=== PATIENT | male | born 1930 | race African-American/Black ===

== ENCOUNTER 2018-08-07 16:38 | Emergency (ER) | payer SELFPAY ==
[~2018-08-07] VITALS: Ht 170.2 cm; Wt 60.0 kg
[2018-08-07] MEDS ORDERED: SODIUM CHLORIDE 0.9% 500 ML IV ONE (17:55)
[2018-08-07 19:15] LABS: BASOPHILS % 0.3 % (0.0-2.0); HEMATOCRIT. 40.3 % (42.0-52.0); HEMOGLOBIN. 13.3 g/dL (14.0-18.0); LYMPHOCYTES % 9.1 % (20.0-50.0); MEAN CORPUSCULAR HEMOGLOBIN 31.7 pg (28.0-32.0); MEAN CORPUSCULAR VOLUME 96.3 fL (80.0-94.0); MONOCYTES % 3.7 % (2.0-8.0); NEUTROPHILS % 86.9 % (40.0-76.0); PLATELET 205 x1000/uL (130-400); RED BLOOD CELL COUNT 4.19 mill/uL (4.7-6.1); RED CELL DISTRIBUTION WIDTH 16.2 % (11.6-14.6)
[2018-08-07 19:17] LABS: CHLORIDE 105 mEq/L (98-107)
[2018-08-07 19:19] LABS: INR 1.1; PARTIAL THROMBOPLASTIN TIME 25.7 sec (23.4-31.0); PROTHROMBIN TIME 10.6 sec (9.1-11.1)
[2018-08-07] MEDS ORDERED: FUROSEMIDE 20MG/2ML VIAL IVP ONE (20:00)
[2018-08-07 20:08] LABS: CLARITY URINE CLEAR (CLEAR); COLOR URINE YELLOW (YELLOW); KETONES URINE TRACE (NEGATIVE); LEUKOCYTE ESTERASE URINE NEGATIVE (NEGATIVE); NITRITE URINE NEGATIVE (NEGATIVE); OCCULT BLOOD URINE NEGATIVE (NEGATIVE); PROTEIN URINE 1+ (NEGATIVE); SPECIFIC GRAVITY URINE 1.024 (1.005-1.030)
[2018-08-07 22:27] VITALS: BP 156/88
== END 2018-08-07 22:32 | disposition short-term general hospital (02) ==
LOC: ER 16:38
DX: R55 Syncope and collapse (principal); F03.90 Unspecified dementia, unspecified severity, without behavioral disturbance, psychotic disturbance, mood disturbance, and anxiety; R73.9 Hyperglycemia, unspecified; E46 Unspecified protein-calorie malnutrition; I50.40 Unspecified combined systolic (congestive) and diastolic (congestive) heart failure; E78.00 Pure hypercholesterolemia, unspecified; I10 Essential (primary) hypertension
CPT/HCPCS: 36415; 70450; 71045; 80053; 81003; 83690; 83735; 83880; 84484; 85025; 85610; 85730; 87086; 93005; 96361; 96374; 99285; J1940; J7040

== ENCOUNTER 2019-04-01 20:42 | Emergency (ER) | payer OTHER ==
[~2019-04-01] VITALS: Ht 170.2 cm; Wt 82.0 kg
[2019-04-01] MEDS ORDERED: SODIUM CHLORIDE 0.9% 1000ML BAG (SEPSIS BOLUS) IV ONE (21:15)
[2019-04-01 21:42] LABS: BASOPHILS % 0.4 % (0.0-2.0); EOSINOPHILS % 0.5 % (0.0-5.0); HEMOGLOBIN. 11.5 g/dL (14.0-18.0); LYMPHOCYTES % 32.3 % (20.0-50.0); MEAN CORPUSCULAR HEMOGLOBIN 31.4 pg (28.0-32.0); MEAN CORPUSCULAR VOLUME 92.7 fL (80.0-94.0); MEAN PLATELET VOLUME 6.8 fl (7.4-10.4); MONOCYTES % 8.4 % (2.0-8.0); NEUTROPHILS % 58.4 % (40.0-76.0); PLATELET 214 x1000/uL (130-400); RED BLOOD CELL COUNT 3.67 mill/uL (4.7-6.1); RED CELL DISTRIBUTION WIDTH 14.5 % (11.6-14.6)
[2019-04-01 21:48] LABS: CHLORIDE 108 mEq/L (98-107)
[2019-04-01 21:50] LABS: INR 1.1; PROTHROMBIN TIME 11.6 sec (9.6-11.0)
[2019-04-01 22:44] LABS: CLARITY URINE CLOUDY (CLEAR); COLOR URINE YELLOW (YELLOW); KETONES URINE TRACE (NEGATIVE); LEUKOCYTE ESTERASE URINE 2+ (NEGATIVE); NITRITE URINE POSITIVE (NEGATIVE); OCCULT BLOOD URINE TRACE (NEGATIVE); PROTEIN URINE TRACE (NEGATIVE); SPECIFIC GRAVITY URINE 1.017 (1.005-1.030)
[2019-04-02] MEDS ORDERED: CEFTRIAXONE 1 G PREMIX 50 ML IV ONE (00:15)
[2019-04-02 04:06] VITALS: BP 152/74
== END 2019-04-02 04:06 | disposition short-term general hospital (02) ==
LOC: ER 20:42 → CANBEDREQ 04-02 05:36
DX: N39.0 Urinary tract infection, site not specified (principal); G93.49 Other encephalopathy
CPT/HCPCS: 36415; 71045; 80053; 81003; 83605; 84145; 84484; 85025; 85610; 87040; 87077; 87086; 87186; 93005; 96361; 96365; 99284; J0696; J7030

== ENCOUNTER 2019-04-24 11:10 | Inpatient (IN) | payer OTHER ==
[~2019-04-24] VITALS: Ht 175.3 cm; Wt 79.8 kg
[2019-04-24] MEDS ORDERED: SODIUM CHLORIDE 0.9% 1,000 ML IV ONE (11:33)
[2019-04-24 11:54] LABS: HEMATOCRIT. 36.9 % (42.0-52.0); HEMOGLOBIN. 12.3 g/dL (14.0-18.0); MEAN CORPUSCULAR HEMOGLOBIN 30.7 pg (28.0-32.0); MEAN PLATELET VOLUME 6.8 fl (7.4-10.4); PLATELET 215 x1000/uL (130-400); RED BLOOD CELL COUNT 4.01 mill/uL (4.7-6.1); RED CELL DISTRIBUTION WIDTH 14.7 % (11.6-14.6)
[2019-04-24] MEDS ORDERED: PIPERACILLIN/TAZ 3.375G PREMIX 50 ML IV ONE (12:00)
[2019-04-24 12:01] LABS: CHLORIDE 104 mEq/L (98-107)
[2019-04-24 12:12] LABS: INR 1.2; PROTHROMBIN TIME 12.7 sec (9.6-11.0)
[2019-04-24] MEDS ORDERED: POTASSIUM CHLORIDE 20MEQ TABLET SR PO ONE (12:15)
[2019-04-24] MEDS ORDERED: SODIUM CHLORIDE 0.9% 1000ML BAG (SEPSIS BOLUS) IV ONE (12:15)
[2019-04-24] MEDS ORDERED: KCL 10MEQ/50ML PREMIX 50 ML IV ONE (12:15)
[2019-04-24 12:32] LABS: PLATELET ESTIMATE NORMAL
[2019-04-24] MEDS ORDERED: IPRATROPIUM/ALBUTEROL 0.5-3(2.5)MG/3ML NEB HHN PRN (13:00)
[2019-04-24 14:19] LABS: CLARITY URINE CLOUDY (CLEAR); COLOR URINE YELLOW (YELLOW); KETONES URINE NEGATIVE (NEGATIVE); LEUKOCYTE ESTERASE URINE 1+ (NEGATIVE); NITRITE URINE POSITIVE (NEGATIVE); OCCULT BLOOD URINE NEGATIVE (NEGATIVE); PROTEIN URINE NEGATIVE (NEGATIVE); SPECIFIC GRAVITY URINE 1.017 (1.005-1.030)
[2019-04-24 15:01] VITALS: BP 154/70
[2019-04-24] MEDS ORDERED: POTASSIUM CHLORIDE 20MEQ TABLET SR PO NR (15:45)
[2019-04-24] MEDS ORDERED: IPRATROPIUM/ALBUTEROL 0.5-3(2.5)MG/3ML NEB HHN SCH (16:00)
[2019-04-24 16:03] VITALS: BP 134/70
[2019-04-24] MEDS: METRONIDAZOLE 500 MG PREMIX 100 ML IV SCH ×2 (16:49→22:07)
[2019-04-24] MEDS: CEFEPIME 1,000 MG in DEXTROSE 5% WATER 50 ML IV SCH (17:44)
[2019-04-24 20:10] VITALS: BP 108/65
[2019-04-24] MEDS ORDERED: ACETYLCYSTEINE 100MG/ML 10% VIAL 4ML INH SCH (22:00)
[2019-04-25] VITALS (7 sets, daily range): BP systolic 118–146; BP diastolic 46–82
[2019-04-25] MEDS: CEFEPIME 1,000 MG in DEXTROSE 5% WATER 50 ML IV SCH (05:50)
[2019-04-25 06:17] LABS: BASOPHILS % 0.2 % (0.0-2.0); EOSINOPHILS % 0.2 % (0.0-5.0); HEMATOCRIT. 33.9 % (42.0-52.0); HEMOGLOBIN. 11.3 g/dL (14.0-18.0); LYMPHOCYTES % 21.2 % (20.0-50.0); MEAN CORPUSCULAR HEMOGLOBIN 30.7 pg (28.0-32.0); MEAN CORPUSCULAR VOLUME 92.5 fL (80.0-94.0); MEAN PLATELET VOLUME 7.3 fl (7.4-10.4); MONOCYTES % 4.1 % (2.0-8.0); NEUTROPHILS % 74.3 % (40.0-76.0); PLATELET 197 x1000/uL (130-400); RED BLOOD CELL COUNT 3.66 mill/uL (4.7-6.1); RED CELL DISTRIBUTION WIDTH 15.2 % (11.6-14.6)
[2019-04-25] MEDS: METRONIDAZOLE 500 MG PREMIX 100 ML IV SCH ×2 (06:29→13:28)
[2019-04-25 06:53] LABS: CHLORIDE 109 mEq/L (98-107)
[2019-04-25] MEDS: POTASSIUM CHLORIDE 20MEQ TABLET SR PO SCH ×2 (08:23→12:38)
[2019-04-25] MEDS ORDERED: TRAZ-251 PO (13:15)
[2019-04-25] MEDS ORDERED: LOSARTAN POTASSIUM 25 MG TABLET PO SCH (15:45)
[2019-04-25] MEDS ORDERED: FUROSEMIDE 20MG/2ML VIAL IVP NR (15:45)
[2019-04-25] MEDS ORDERED: CEFEPIME 1,000 MG in DEXTROSE 5% WATER 50 ML IV SCH (20:00)
[2019-04-25] MEDS ORDERED: CARVEDILOL 6.25 MG TABLET PO SCH (21:00)
== END 2019-04-25 22:18 | disposition short-term general hospital (02) | DRG 871 ==
LOC: ER 11:10 → 7WST 12:39 → EDBEDREQ 12:54 → EDBEDREQTM 12:54 → EDBEDREQ 13:11 → ENRESERV 13:31
PROVIDERS: ADMIT Internal Medicine; ATTEND Internal Medicine
DX: A41.9 Sepsis, unspecified organism (principal); E43 Unspecified severe protein-calorie malnutrition; I50.23 Acute on chronic systolic (congestive) heart failure; J69.0 Pneumonitis due to inhalation of food and vomit; J96.00 Acute respiratory failure, unspecified whether with hypoxia or hypercapnia; R65.21 Severe sepsis with septic shock; I24.9 Acute ischemic heart disease, unspecified; N39.0 Urinary tract infection, site not specified; I42.9 Cardiomyopathy, unspecified; C61 Malignant neoplasm of prostate; D64.9 Anemia, unspecified; E87.6 Hypokalemia; G30.9 Alzheimer's disease, unspecified; F02.80 Dementia in other diseases classified elsewhere, unspecified severity, without behavioral disturbance, psychotic disturbance, mood disturbance, and anxiety; Z68.26 Body mass index [BMI] 26.0-26.9, adult
CPT/HCPCS: 36415; 71045; 80048; 81003; 83605; 83735; 83880; 84132; 84145; 84484; 87077; 92610; 93005; 93306; 93970; 97161; J0692; J1940; J2543; J3480; J3490; J7030; J7060; J7608